=== PATIENT | male | born 1975 | race Caucasian/White ===

== ENCOUNTER 2016-12-12 10:42 | Emergency (ER) | payer SELFPAY | END 2016-12-12 12:30 | disposition home or self-care (01) | LOC: D.ER 10:42 | DX: K60.2 Anal fissure, unspecified (principal); F41.9 Anxiety disorder, unspecified ==

== ENCOUNTER 2019-03-05 20:36 | Inpatient (IN) | payer MEDICAID ==
[~2019-03-05] VITALS: Ht 188 cm; Wt 65.8 kg
--- NOTE | ~2019-03-05 | EC ---
PATIENT:BRAIN LION DATE OF SERVICE: 03/05/19 SEX: M MEDICAL RECORD: [id number] DATE OF : [birth year] LOCATION:D.M3 D.120 AGE OF PATIENT: 43 ADMISSION DATE: 03/05/19 REFERRING PHYSICIAN: INTERPRETING PHYSICIAN: KYLE SQUIRES MD ECHOCARDIOGRAM REPORT ECHO CHARGES 4 ECHO COMPLETE Date: 03/06/19 CLINICAL DIAGNOSIS: R/O VEGETATION ECHOCARDIOGRAPHIC MEASUREMENTS (adult normal given) AC root (d.<3.7cm) 3.7 cm LV Septum d (<1.2 cm> 1.8 cm Valve Excursion 2.2 cm LV Septum (systole) 2.5 cm Left Atria (s.<4.0cm> 3.3 cm LVPW d(<1.2cm) 1.7 cm RV (d.<2.3cm) 2.4 cm LVPW (sytole) 2.4 cm LV diastole(<5.6CM) 5.2 cm MV E-F(>70mm/sec) cm LV systole 2.9 cm LVOT Diameter 2.1 cm MV exc.(>10mm) cm Est.ejection fraction (50-75%) % DOPPLER: LVIT cm/sec A 44.0 cm/sec E 61.0 cm/sec LA cm/sec RVSP mmHg LVOT 103 cm/sec AOP1/2T m/s Asc. Ao 116 cm/sec RVOT 69.0 cm/sec RA cm/sec PA 83.0 cm/sec AV Gradient Peak 5.4 mmHg AV Mean 2.8 mmHg AV Area 3.0 cm MV Gradient Peak 2.8 mmHg MV Mean 1.1 mmHg MV Area cm COMMENTS: Manager Radio: Amari KENTOE Chief Scientific Officer: 1 Dr. Squires TAPE# PACS Pericardial Effusion N DATE OF SERVICE: 03/06/2019 ECHOCARDIOGRAM DATE OF SERVICE: 03/06/2019 FINDINGS: 1. Left ventricular chamber size is within normal limits. Left ventricular systolic function is normal. Overall ejection fraction estimated at 55%. 2. Left atrium, right atrium, and right ventricle chamber sizes are within ECHOCARDIOGRAM REPORT [id number] BRAIN LION normal limits. 3. Valvular structures have normal structure and motion. 4. Doppler interrogation reveals no significant valvular insufficiency or stenosis. 5. No evidence of pericardial effusion or left ventricular thrombus. 6. No evidence of vegetative endocarditis. TRANSINT:[id number] Voice Confirmation ID: [id number] DOCUMENT ID: [id number] KYLE SQUIRES MD CC: [id number] DICTATION DATE: 03/07/19409 CUT OFF SAW OPERATOR METAL: 03/07/19418 ADM IN [facility] [address] [id number]
[2019-03-05 21:28] LABS: INR 1.17 (0.85-1.17); PROTIME 14.4 SECONDS (11.6-15.0)
[2019-03-05 21:29] LABS: APTT 33.2 SECONDS (22.8-39.4)
[2019-03-05 21:42] LABS: ALBUMIN 3.6 g/dL (3.4-5.0); ALKALINE PHOSPHATASE 93 U/L (46-116); ALT (SGPT) 20 U/L (10-68); BILIRUBIN - TOTAL 1.13 mg/dL (0.2-1.3); CALC OSMOLALITY 269 mosm/kg (275-300); CALCIUM 8.7 mg/dL (8.5-10.1); CARBON DIOXIDE 24.6 mmol/L (21.0-32.0); CHLORIDE - SERUM 101 mmol/L (98-107); CREATININE - SERUM 1.2 mg/dL (0.6-1.3); GLUCOSE 142 mg/dL (74-106); POTASSIUM - SERUM 3.8 mmol/L (3.5-5.1); PROTEIN - SERUM 7.7 g/dL (6.4-8.2); SODIUM 134 mmol/L (136-145); UREA NITROGEN 12 mg/dL (7-18); eGFR NON AFRICAN AMERICAN 70 mL/min (90-120)
[2019-03-05 21:48] LABS: CKMB 0.2 U/L (0.0-3.6); CREATINE KINASE 244 UL (21-232)
[2019-03-05 21:49] LABS: BASOPHILS 0.1 % (0-2); EOSINOPHILS 0.1 % (0-7); HEMATOCRIT 39.8 % (42.0-54.0); HEMOGLOBIN 13.7 g/dL (13.5-17.5); IMMATURE GRANULOCYTES 0.5 % (0-5); LYMPHOCYTES 5.6 % (15-50); MCH 29.1 pg (26.0-34.0); MCHC 34.4 g/dL (31.0-37.0); MCV 84.5 fL (80.0-100.0); MEAN PLATELET VOLUME 10.3 fL (7.4-10.4); MONOCYTES 9.7 % (2-11); PLATELET COUNT 161 10x3/uL (130-400); RBC 4.71 10x6/uL (4.20-6.10); TROPONIN-I < 0.017 ng/mL (0.000-0.060); WBC 19.8 10x3/uL (4.8-10.8)
[2019-03-05 22:13] LABS: APPEARANCE CLEAR (CLEAR); BILIRUBIN NEGATIVE (NEGATIVE); COLOR YELLOW (YELLOW); GLUCOSE NEGATIVE (NEGATIVE); KETONE NEGATIVE (NEGATIVE); NITRITE NEGATIVE (NEGATIVE); PROTEIN NEGATIVE (NEGATIVE); UROBILINOGEN NORMAL (NORMAL)
[2019-03-05 23:08] LABS: UDS - AMPHET POSITIVE QUAL (NEGATIVE); UDS - BARB NEGATIVE QUAL (NEGATIVE); UDS - BENZO NEGATIVE QUAL (NEGATIVE); UDS - COCAINE POSITIVE QUAL (NEGATIVE); UDS - OPIATE NEGATIVE QUAL (NEGATIVE); UDS - PCP NEGATIVE QUAL (NEGATIVE); UDS - THC NEGATIVE QUAL (NEGATIVE)
[2019-03-06 00:52] VITALS: BP 116/67; BMI 18.6
[2019-03-06 04:30] VITALS: BP 128/84
[2019-03-06 07:26] LABS: BASOPHILS 0.1 % (0-2); EOSINOPHILS 0 % (0-7); HEMOGLOBIN 12.7 g/dL (13.5-17.5); IMMATURE GRANULOCYTES 0.4 % (0-5); LYMPHOCYTES 9.1 % (15-50); MCH 28.9 pg (26.0-34.0); MCHC 34.3 g/dL (31.0-37.0); MCV 84.3 fL (80.0-100.0); MEAN PLATELET VOLUME 10.6 fL (7.4-10.4); MONOCYTES 7.5 % (2-11); NEUTROPHILS 82.9 % (40-80); PLATELET COUNT 152 10x3/uL (130-400); RBC 4.39 10x6/uL (4.20-6.10); RDW 13.1 % (11.5-14.5); WBC 19.7 10x3/uL (4.8-10.8)
[2019-03-06 08:08] LABS: ALKALINE PHOSPHATASE 75 U/L (46-116); ALT (SGPT) 16 U/L (10-68); CALC OSMOLALITY 272 mosm/kg (275-300); CALCIUM 8.4 mg/dL (8.5-10.1); CARBON DIOXIDE 24.7 mmol/L (21.0-32.0); CHLORIDE - SERUM 102 mmol/L (98-107); CREATININE - SERUM 0.9 mg/dL (0.6-1.3); GLUCOSE 135 mg/dL (74-106); POTASSIUM - SERUM 3.8 mmol/L (3.5-5.1); PROTEIN - SERUM 6.8 g/dL (6.4-8.2); SODIUM 136 mmol/L (136-145); UREA NITROGEN 11 mg/dL (7-18); eGFR NON AFRICAN AMERICAN > 90 mL/min (90-120)
[2019-03-06 08:25] VITALS: BP 137/79
[2019-03-06 12:00] VITALS: BP 122/66
[2019-03-06 13:04] VITALS: Ht 188 cm; Wt 65.8 kg
[2019-03-06 16:00] VITALS: BP 121/56
[2019-03-06 20:00] VITALS: BP 101/56
[2019-03-07 00:14] VITALS: BP 101/63
[2019-03-07 04:29] VITALS: BP 105/64
[2019-03-07 07:48] LABS: BASOPHILS 0.1 % (0-2); EOSINOPHILS 0.6 % (0-7); HEMATOCRIT 37.1 % (42.0-54.0); HEMOGLOBIN 12.4 g/dL (13.5-17.5); IMMATURE GRANULOCYTES 0.3 % (0-5); MCH 28.9 pg (26.0-34.0); MCHC 33.4 g/dL (31.0-37.0); MEAN PLATELET VOLUME 10.6 fL (7.4-10.4); MONOCYTES 8.4 % (2-11); NEUTROPHILS 74.6 % (40-80); PLATELET COUNT 149 10x3/uL (130-400); RBC 4.29 10x6/uL (4.20-6.10); RDW 13.5 % (11.5-14.5)
[2019-03-07 08:07] LABS: MCV 86.5 fL (80.0-100.0); WBC 10.4 10x3/uL (4.8-10.8)
[2019-03-07 09:14] LABS: HEPATITIS C ANTIBODY <0.1 S/CO RAT (0.0-0.9)
[2019-03-07 09:44] VITALS: BP 130/60
[2019-03-07 13:33] VITALS: BP 112/62
== END 2019-03-07 14:02 | disposition left against medical advice (07) | DRG 871 ==
LOC: D.ER 20:36 → D.M3 23:52
PROVIDERS: Family Medicine; ADMIT Internal Medicine Nephrology; ATTEND Internal Medicine Nephrology
DX: A41.9 Sepsis, unspecified organism (principal); G92 Toxic encephalopathy; L03.113 Cellulitis of right upper limb; D64.9 Anemia, unspecified; F14.10 Cocaine abuse, uncomplicated; F15.10 Other stimulant abuse, uncomplicated